=== PATIENT | female | born 1995 | race Caucasian/White ===

== ENCOUNTER 2021-06-11 20:31 | Emergency (ER) | payer SELFPAY ==
[~2021-06-11] VITALS: Ht 157.5 cm; Wt 59.0 kg
[2021-06-11 20:31] VITALS: BP 135/54
== END 2021-06-12 | disposition home or self-care (01) ==
LOC: ER 20:42
DX: S80.11XA Contusion of right lower leg, initial encounter (principal); Z59.00 Homelessness unspecified; W19.XXXA Unspecified fall, initial encounter; Y93.89 Activity, other specified; Y92.89 Other specified places as the place of occurrence of the external cause; Y99.8 Other external cause status
CPT/HCPCS: 73590-TC; 73610-TC